=== PATIENT | female | born 1975 | race Caucasian/White ===

== ENCOUNTER 2016-11-04 06:42 | Inpatient (IN) | payer OTHER ==
[2016-11-04] VITALS (27 sets, daily range): BP systolic 83–136; BP diastolic 45–93
[~2016-11-04] VITALS: Ht 165.1 cm; Wt 60.9 kg
[~2016-11-04 06:42] MED LIST: MOTRIN800 MG PO; NAPROSYN500 MG PO; NICODERM CQ1 EAC1 TD; PERCOCET 5/31 TABLET PO; PRENATAL VITAM1 EA11 PO; TRAMADOL HCL50 MG PO
[2016-11-04 09:04] LABS: BASOPHIL COUNT 0.1 K/uL (0-0.1); EOSINOPHIL (%) 1.8 % (0-5); EOSINOPHIL COUNT 0.3 K/uL (0-0.3); HEMATOCRIT 33.4 % (36.0-46.0); IMMATURE GRANULOCYTE (%) 0.3 % (0.0-0.7); IMMATURE GRANULOCYTE COUNT 0.4 K/uL; LYMPHOCYTE COUNT 2.1 K/uL (1.0-2.8); MCH 30.4 PG (29.0-34.0); MCHC 34.7 G/DL (30.0-36.0); MCV 87.7 FL (83-99); MEAN PLAT.VOLUME 10.9 uM^3 (9.5-12.4); MONOCYTE (%) 9.4 % (3-12); MONOCYTE COUNT 1.4 K/uL (0-0.8); NEUTROPHIL (%) 74.4 % (45-76); NEUTROPHIL COUNT 11.1 K/uL (1.8-6.4); PLATELET COUNT 338 K/uL (156-360); RBC DIS.WIDTH-CV 13.7 % (11.8-14.6); RBC DIS.WIDTH-SD 42.3 % (39-53); RED BLOOD COUNT 3.81 M/uL (3.80-5.20); WHITE BLOOD COUNT 14.9 K/uL (4.1-10.2)
[2016-11-04 10:15] LABS: AMPHETAMINES QUANT VALUE 0 NG/ML; BARBITUATES QUANT VALUE 0 NG/ML; BENZODIAZEPINES QUANT VALUE 0 NG/ML; BENZODIAZEPINES, URINE SCREEN Negative (200 ng/mL); MARIJUANA QUANT VALUE 0 NG/ML; OPIATES QUANTITATIVE VALUE 0 NG/ML; PHENCYCLIDINE QUANT VALUE 0 NG/ML
[2016-11-04 20:40] LABS: HEMATOCRIT 28.8 % (36.0-46.0); MCV 88.9 FL (83-99)
[2016-11-04] MEDS ORDERED: IBUPROFEN800 MG PO (21:38)
[2016-11-05 02:26] VITALS: BP 103/59
[2016-11-05 06:30] LABS: HEMATOCRIT 23.5 % (36.0-46.0); RBC DIS.WIDTH-CV 14.1 % (11.8-14.6); RBC DIS.WIDTH-SD 45.8 % (39-53)
[2016-11-05 06:31] LABS: RED BLOOD COUNT 2.67 M/uL (3.80-5.20); WHITE BLOOD COUNT 25.5 K/uL (4.1-10.2)
[2016-11-05 07:17] LABS: EOSINOPHIL (%) 0.1 % (0-5); HEMATOLOGY COMMENT 1 SMEAR COMPATIBLE; IMMATURE GRANULOCYTE (%) 0.5 % (0.0-0.7); IMMATURE GRANULOCYTE COUNT 0.1 K/uL; LYMPHOCYTE COUNT 2.2 K/uL (1.0-2.8); MEAN PLAT.VOLUME 11.1 uM^3 (9.5-12.4); MONOCYTE (%) 9.1 % (3-12); MONOCYTE COUNT 2.3 K/uL (0-0.8); NEUTROPHIL (%) 81.5 % (45-76); NEUTROPHIL COUNT 20.8 K/uL (1.8-6.4); PLAT.SUFFICIENCY ADEQUATE; USER ID CCL
[2016-11-05 07:32] VITALS: BP 97/57
[2016-11-05 07:32] LABS: PLATELET COUNT 214 K/uL (156-360)
[2016-11-05] MEDS ORDERED: FEOSOL325 MG PO (10:25)
[2016-11-05 16:15] VITALS: BP 82/50
[2016-11-05 18:29] VITALS: BP 92/55
[2016-11-05 19:20] VITALS: BP 93/60
[2016-11-05 23:35] VITALS: BP 99/57
[2016-11-06 07:20] VITALS: BP 98/58
[2016-11-06] MEDS ORDERED: AUGMENTIN500 MG PO (10:10)
== END 2016-11-06 17:53 | disposition home or self-care (01) | DRG 774 ==
LOC: LDRP-OP 06:42 → 2WEST 06:43 → LDRP-OP 06:56 → 2WEST 18:49 → LDRP-OP 12-09 10:16
PROVIDERS: Midwife; Obstetrics & Gynecology
DX: O36.5930 Maternal care for other known or suspected poor fetal growth, third trimester, not applicable or unspecified (principal); O76 Abnormality in fetal heart rate and rhythm complicating labor and delivery; O41.1230 Chorioamnionitis, third trimester, not applicable or unspecified; O98.82 Other maternal infectious and parasitic diseases complicating childbirth; R78.81 Bacteremia; O77.0 Labor and delivery complicated by meconium in amniotic fluid; O99.334 Smoking (tobacco) complicating childbirth; F17.200 Nicotine dependence, unspecified, uncomplicated; O99.02 Anemia complicating childbirth; D64.9 Anemia, unspecified; Z3A.39 39 weeks gestation of pregnancy; Z37.0 Single live birth
CPT/HCPCS: 85014; 85018; 85025; 87040; 87076; 87185; 87801; 88307; C1755; J0295; J2405; J3010; J7030; J7050; J7120